=== PATIENT | male | born 1980 | race Caucasian/White ===

== ENCOUNTER 2018-02-14 09:39 | Emergency (ER) | payer SELFPAY ==
[~2018-02-14] VITALS: Ht 177.8 cm; Wt 81.0 kg
[2018-02-14 09:43] VITALS: BP 141/72
== END 2018-02-14 10:10 | disposition home or self-care (01) ==
LOC: ER 09:39
DX: R41.82 Altered mental status, unspecified (principal); Z53.21 Procedure and treatment not carried out due to patient leaving prior to being seen by health care provider